=== PATIENT | female | born 1985 | race Native Hawaiian/Other Pacific Islander ===

== ENCOUNTER → 2021-05-13 | Emergency (ER) | LOC: COL.ER 08:45 | DX: R69 Illness, unspecified (principal) ==

== ENCOUNTER 2021-07-28 17:15 | Inpatient (IN) | payer MEDICARE ==
[~2021-07-28] VITALS: Ht 157.5 cm; Wt 104.2 kg
[2021-07-28 17:42] LABS: BASO # 0.1 K/mm3 (0.0-0.2); BASO % 1.2 % (0.0-2.0); EOS # 0.2 K/mm3 (0.0-0.7); EOS % 2.3 % (0.0-4.0); GRAN # 5.5 K/mm3 (1.4-6.5); GRAN % 74.5 % (42.2-75.2); LYMPH # 0.9 K/mm3 (1.2-3.4); LYMPH % 11.6 % (20.0-51.0); MEAN CELL VOLUME 83 fl (80.0-100.0); MEAN CORPUSCULAR HGB CONC 32 g/dl (33.0-37.0); MEAN PLATELET VOLUME 9.6 fl (7.4-10.4); MONO # 0.7 K/mm3 (0.1-0.6); PLATELET COUNT 328 K/mm3 (130-400); RED BLOOD COUNT 3.05 M/mm3 (4.10-5.30); REDCELL DISTRIBUTION WIDTH-CV 12.9 % (11.5-14.5)
[2021-07-28 17:47] LABS: HEMATOCRIT 25.2 % (37.0-47.0); HEMOGLOBIN 8.1 g/dl (12.5-16.0); MEAN CORPUSCULAR HEMOGLOBIN 27 pg (27-31)
[2021-07-28 18:04] LABS: ALBUMIN 2.6 gm/dL (3.5-5.0); BILIRUBIN,TOTAL 0.6 mg/dL (0.2-1.2); CALCIUM 7.6 mg/dL (8.4-10.2); CREATININE, serum 14.38 mg/dL (0.57-1.11); POTASSIUM 3.8 mmol/L (3.5-4.5); TOTAL PROTEIN 6.8 gm/dL (6.2-8.1)
[2021-07-28 18:12] LABS: TROPONIN-I 0.431 ng/mL (0.00-0.033)
[2021-07-28 22:32] LABS: COLLECTION METHOD CLEAN CATCH
[2021-07-28 22:39] LABS: MUCOUS Present (NOT PRESENT); PH 7 (5-8); SQUAMOUS EPITHELIAL 0-2 /hpf (0-10); URINE APPEARANCE Hazy (CLEAR/HAZY); URINE BACTERIA Rare /hpf (NONE SEEN); URINE BILIRUBIN Negative (NEGATIVE); URINE BLOOD 1+ (NEGATIVE); URINE COLOR Yellow (YELLOW); URINE GLUCOSE 1+ (NEGATIVE); URINE KETONE Negative (NEGATIVE); URINE LEUKOCYTE ESTERASE 2+ (NEGATIVE); URINE NITRATE Negative (NEGATIVE); URINE PROTEIN(semi-quant) 3+ (NEGATIVE); URINE RBC 0-2 /hpf (0-2); URINE UROBILINOGEN Negative (NEGATIVE)
[2021-07-28 22:45] LABS: TRICYCLIC ANTIDEPRESS URINE NEGATIVE
[2021-07-28 22:45] LABS: ACETAMINOPHEN < 1.0 ug/mL (10-30); ALCOHOL(ethanol),MEDICAL < 10 mg/dL (0-10); SALICYLATE < 5.0 mg/dL (15.0-30.0)
[2021-07-28] MEDS ORDERED: GLUCOTROL10 MG PO (23:09)
[2021-07-28] MEDS ORDERED: LOPRESSOR 550 MG/TAB PO (23:09)
[2021-07-28] MEDS ORDERED: ADALAT CC60 MG PO (23:10)
[2021-07-28] MEDS ORDERED: NEPHROCAP PO (23:10)
[2021-07-28] MEDS ORDERED: ROCALTROL0.5 MCG PO (23:11)
[2021-07-28] MEDS ORDERED: RENVELA800 MG PO (23:16)
[2021-07-28] MEDS ORDERED: AURYXIA1 GM PO (23:17)
[2021-07-28] MEDS ORDERED: TYLENOL 325MG325 MG PO (23:18)
[2021-07-28 23:43] LABS: ARTERIAL BLD GAS O2 SATURATION 94.6 % (92-100); ARTERIAL BLD GAS TCO2 CT 17.8; ARTERIAL BLOOD GAS BASE EXCESS -7.5 (-2-2); ARTERIAL BLOOD GAS HCO3 16.8 meq/L (22-26); ARTERIAL BLOOD GAS pH 7.37 (7.35-7.45)
[2021-07-29] VITALS (451 sets, daily range): BP systolic 122–188; BP diastolic 40–105; PULSE 66–86; TEMP 97.3–98.2; O2SAT 39–100
--- NOTE | 2021-07-29 00:36 | NUR ---
36 yo female admitted for further care and management of altered mental status with concerns for severe sepsis. ht 66 inches wt 80 kg SCr 14.38 with ESRD on PD Plan: Patient will not follow population based kinetics secondary to ESRD. Will give an initial loading dose of vancomycin 1500 mg x1 (18.75 mg/kg). Will follow patient's dialysis schedule, micro data, and vancomycin levels as indicated to determine timing for additional pulse doses of vancomycin to target a goal trough of 15-20 mcg/ml. Thank you for this dosing consult.
[2021-07-29 01:27] LABS: INR 1.1 (0.8-3.0)
[2021-07-29 01:29] LABS: PARTIAL THROMBOPLASTIN TIME 32.5 SECONDS (26.0-37.0)
[2021-07-29 03:07] LABS: C-REACTIVE PROTEIN 5.63 mg/dL (0.00-0.50); MAGNESIUM 2.4 mg/dL (1.6-2.6); PHOSPHOROUS 12.8 mg/dL (2.3-4.7)
[2021-07-29 06:25] LABS: BASO # 0.1 K/mm3 (0.0-0.2); BASO % 0.6 % (0.0-2.0); EOS # 0.5 K/mm3 (0.0-0.7); EOS % 4.1 % (0.0-4.0); GRAN # 8.7 K/mm3 (1.4-6.5); GRAN % 76.9 % (42.2-75.2); LYMPH # 1.1 K/mm3 (1.2-3.4); MEAN CELL VOLUME 83 fl (80.0-100.0); MEAN CORPUSCULAR HGB CONC 32 g/dl (33.0-37.0); MEAN PLATELET VOLUME 9.7 fl (7.4-10.4); MONO # 0.9 K/mm3 (0.1-0.6); MONO % 7.9 % (1.7-9.3); PLATELET COUNT 371 K/mm3 (130-400); RED BLOOD COUNT 3.18 M/mm3 (4.10-5.30); REDCELL DISTRIBUTION WIDTH-CV 12.8 % (11.5-14.5)
[2021-07-29 06:27] LABS: HEMATOCRIT 26.3 % (37.0-47.0); HEMOGLOBIN 8.5 g/dl (12.5-16.0); MEAN CORPUSCULAR HEMOGLOBIN 27 pg (27-31)
[2021-07-29 06:34] LABS: CALCIUM 7.7 mg/dL (8.4-10.2); CREATININE, serum 14.64 mg/dL (0.57-1.11); POTASSIUM 4.3 mmol/L (3.5-4.5)
--- NOTE | 2021-07-29 08:58 | NUR ---
Blood glucose 38. Patient alert and oriented although slightly drowsy and states she can tell her glucose "feels low". Grape juice and crackers provided. Breakfast was also delivered within [address] minutes [address] juice[address] Armendariz notified. Will continue to monitor.
--- NOTE | 2021-07-29 11:17 | NUR ---
Assisted up to bedside commode; had a continent BM at this time. Patient alert and less drowys after receiving 1/2 amp of D50.
--- NOTE | 2021-07-29 14:30 | NUR ---
Patient stating that she "can't breath" and has repeatedly removed her oxygen on 02 montitor. Patient is alert and oriented. Explained to patient that 02 and the bumex drip are what will help with the shortness of breath. Removed her sp02 monitor because she "didn't feel comfortable" with it on. Notified hospitalist about patient being uncooperative with cares. Will attempt again to replace 02 and 02 monitor.
--- NOTE | 2021-07-29 15:55 | NUR ---
When nurse was allowed to place 02 monitors back on patient was noted to be 79% on RA. 02 was placed back on at 6L and 92-93%. Monteiro catheter has not been placed as nurse has attempted X 4 to get patien to lay back in bed, however patient immediately states that she "can't breath" and needs to sit back up on edge of the bed. While on the edge of the bed patient bobs around and appears as if she is going to fall off the edge. However, patient is alert and oriented at this time. Will assisted up to recliner to see if she is more comfortable while being safely seated in the chair. to Hospitalist notified in person and obseved patient sitting on the side of the bed.
[2021-07-30] VITALS (459 sets, daily range): BP systolic 120–131; BP diastolic 47–83; PULSE 59–67; TEMP 97.2–97.8; O2SAT 82–100
[2021-07-30 05:44] LABS: MEAN CELL VOLUME 81 fl (80.0-100.0); MEAN CORPUSCULAR HGB CONC 33 g/dl (33.0-37.0); MEAN PLATELET VOLUME 9.9 fl (7.4-10.4); PLATELET COUNT 422 K/mm3 (130-400); RED BLOOD COUNT 3.25 M/mm3 (4.10-5.30); REDCELL DISTRIBUTION WIDTH-CV 12.9 % (11.5-14.5)
[2021-07-30 05:57] LABS: HEMATOCRIT 26.3 % (37.0-47.0); HEMOGLOBIN 8.6 g/dl (12.5-16.0); MEAN CORPUSCULAR HEMOGLOBIN 26 pg (27-31)
[2021-07-30 05:58] LABS: ALBUMIN 2.5 gm/dL (3.5-5.0); CALCIUM 7.6 mg/dL (8.4-10.2); CREATININE, serum 14.58 mg/dL (0.57-1.11); MAGNESIUM 2.5 mg/dL (1.6-2.6); POTASSIUM 4.6 mmol/L (3.5-4.5)
--- NOTE | 2021-07-30 06:52 | NUR ---
Patient was restless most of the night but did eventually sleep in the chair for a few hours. Her blood glucose levels continued to rise throughout the night, starting at 2020 her glucose level was 66 and by 0630 her glucose level was 117; patient did not ever need hypoglycemic protocol measures implemented. Patient is currently resting in the chair and will go down to have a dialysis catheter placed at approx 0800.
--- NOTE | 2021-07-30 08:10 | NUR ---
Assisted back to OR with OR nurse at this time for dialysis catheter placement. Patient alert and oriented per usual and in no distress upon transfer.
--- NOTE | 2021-07-30 08:27 | NUR ---
Back from dialysis catheter placement. Patient drowsy but alert and responsive to staff. VS stable.
--- NOTE | 2021-07-30 09:56 | NUR ---
SW tried to complete intake but pt was in OR, will try back later.
--- NOTE | 2021-07-30 10:35 | NUR ---
While observing telemetry reading there appears to be some ST depression. Dr. Unger notified and requested an EKG.
--- NOTE | 2021-07-30 11:00 | NUR ---
No significant findings on EKG per Dr. Unger.
--- NOTE | 2021-07-30 13:15 | NUR ---
Assisted up to the side of the bed to eat. Alert and oriented and speaking to Aunt on the phone.
--- NOTE | 2021-07-30 15:46 | NUR ---
Blood glucose 180's after eating lunch. D12.5 placed on standby. Re-checked 1 hr later and glucose 190's. Hospitalist notified and D12.5 placed on standby at this time. Will continue to monitor.
--- NOTE | 2021-07-30 18:16 | NUR ---
Blood glucose 214 prior to dinner; hospitalist notified. No changes made to plan of care at this time and will plan to check glucose every 4 hours.
--- NOTE | 2021-07-30 20:28 | NUR ---
PM ASSESSMENT COMPLETE. PT SITTING UP IN CHAIR, DENIES PAIN. REPORTS NO QUESTIONS OR CONCERNS. AWARE OF DIALYSIS PLANNED FOR TOMORROW. NEW ACCESS TO RIJ WITH DRESSING CDI. PIV TO RT HAND REMOVED HARD TO FLUSH AND PT C/O PAIN. TIP INTACT, GAUZE AND TAPE APPLIED. VSS, PT ON O2 4L. WILL CONTINUE TO MONITOR.
[2021-07-31] VITALS (434 sets, daily range): BP systolic 104–137; BP diastolic 57–83; PULSE 57–74; TEMP 95.6–98.3; O2SAT 78–98
[2021-07-31 07:34] LABS: MEAN CELL VOLUME 81 fl (80.0-100.0); MEAN CORPUSCULAR HGB CONC 33 g/dl (33.0-37.0); PLATELET COUNT 419 K/mm3 (130-400); REDCELL DISTRIBUTION WIDTH-CV 12.9 % (11.5-14.5)
[2021-07-31 07:50] LABS: HEMATOCRIT 25.2 % (37.0-47.0); HEMOGLOBIN 8.2 g/dl (12.5-16.0); MEAN CORPUSCULAR HEMOGLOBIN 26 pg (27-31)
[2021-07-31 07:51] LABS: ALBUMIN 2.5 gm/dL (3.5-5.0); C-REACTIVE PROTEIN 3.23 mg/dL (0.00-0.50); CALCIUM 7.5 mg/dL (8.4-10.2); CREATININE, serum 14.97 mg/dL (0.57-1.11); MAGNESIUM 2.7 mg/dL (1.6-2.6); PHOSPHOROUS 13.4 mg/dL (2.3-4.7); POTASSIUM 4.6 mmol/L (3.5-4.5)
--- NOTE | 2021-07-31 09:50 | NUR ---
REPORT RECEIVED FROM JOSH BAY. PT SLEPT IN CHAIR OVERNIGHT. FC TO DEPENDENT DRAINAGE. PERIPHERAL IV TO RIGHT AC; SALINE LOCKED AT THIS TIME. DIALYSIS CATHETER TO RIGHT IJ; PLAN FOR HEMODIALYSIS TODAY. CURRENTLY ON 5L NC. VITAL SIGNS STABLE.
--- NOTE | 2021-07-31 10:18 | NUR ---
Fuel Agent met with patient to discuss discharge planning. Patient lives in [place] with her Cousin, Selam (ph#[phone]) and does not have a current primary care physician. Patient states she has had trouble securing primary care since she only has Medicare. Patient states she would like to apply for disability. SW consulted financial counselor, [employer]. Patient obtains medications from [facility] on [address]. Patient states she does dialysis at home and uses no other DME besides this. Patient reports independence with ADLS and plans to return home at time of discharge. Patient does not have DPOA-HC. Patient is not and has no children. Patient reports her mother, Alyssa lives in [facility] and she has a brother, Ashu that lives in [place]. Patient lists her aunt, Emerita (ph#[phone]) as another point of contact. Discharge Plan: Home
--- NOTE | 2021-07-31 12:14 | NUR ---
PATIENT TOLERATED HD TX WITH 2.6L OF FLUID REMOVED. NEXT HD TX PLANNED FOR Saturday08/02/21 @ 0800.
--- NOTE | 2021-07-31 16:09 | NUR ---
TRANSFER ORDERS PLACED BY DR. TAVAREZ FOR PT TO MOVE TO MEDICAL FLOOR. REPORT GIVEN TO JOSH PATTERSON. PT WILL BE TAKEN TO RM 302. PT AWARE OF STATUS CHANGE AND STATES SHE WILL LET HER FAMILY KNOW.
[2021-07-31 16:58] LABS: HEPATITIS B SURFACE ANTIBODY 173.5 (()); HEPATITIS B SURFACE ANTIGEN Negative (Negative); HEPATITIS C VIRUS ANTIBODY Negative (Negative)
[2021-08-01 03:03] VITALS: BP 133/47; PULSE 66; TEMP 98.1
[2021-08-01 07:58] VITALS: BP 124/54; PULSE 65; TEMP 97.5
[2021-08-01 12:00] VITALS: BP 112/45; PULSE 62; TEMP 98.5
[2021-08-01 13:17] LABS: BASO # 0.1 K/mm3 (0.0-0.2); BASO % 0.5 % (0.0-2.0); EOS % 0.2 % (0.0-4.0); GRAN # 11.5 K/mm3 (1.4-6.5); GRAN % 89.7 % (42.2-75.2); LYMPH # 0.6 K/mm3 (1.2-3.4); MEAN CELL VOLUME 81 fl (80.0-100.0); MEAN CORPUSCULAR HGB CONC 33 g/dl (33.0-37.0); MEAN PLATELET VOLUME 10.2 fl (7.4-10.4); MONO # 0.5 K/mm3 (0.1-0.6); MONO % 3.9 % (1.7-9.3); PLATELET COUNT 384 K/mm3 (130-400); RED BLOOD COUNT 2.85 M/mm3 (4.10-5.30); REDCELL DISTRIBUTION WIDTH-CV 12.9 % (11.5-14.5)
[2021-08-01 13:19] LABS: HEMATOCRIT 23.2 % (37.0-47.0); HEMOGLOBIN 7.6 g/dl (12.5-16.0); MEAN CORPUSCULAR HEMOGLOBIN 27 pg (27-31)
[2021-08-01 13:29] LABS: ALBUMIN 2.4 gm/dL (3.5-5.0); CALCIUM 7.7 mg/dL (8.4-10.2); CREATININE, serum 9.63 mg/dL (0.57-1.11); MAGNESIUM 2.5 mg/dL (1.6-2.6); PHOSPHOROUS 8.5 mg/dL (2.3-4.7); POTASSIUM 4.5 mmol/L (3.5-4.5)
[2021-08-01 14:23] VITALS: BP 112/45; PULSE 62; TEMP 98.5
[2021-08-01 17:19] VITALS: BP 127/46; PULSE 64; TEMP 98.6
--- NOTE | 2021-08-01 18:29 | NUR ---
PT SITTING UP IN CHAIR. STONE DRAINING AT BEDISDE. PT STATES THAT SHE IS NOT AHVING ANY PAIN. NO NEEDS VOICED AT THIS TIME. CALL LIGHT IS WITHIN REACH.
--- NOTE | 2021-08-01 18:33 | NUR ---
PT SITTING UP IN CHAIR PLAYING ON PHONE. PT STATES THAT SHE WOULD LIKE TO HAVE A WARM BLANET. BLANKET GIVEN TO PT. NO OTHER NEEDS WERE VOICED. PT STATES THAT SHE IS NOT HAVING ANY PAIN. STONE WERE DRAINING AT THE BEDSIDE. CALL LIGHT IS WITHIN REACH.
[2021-08-01 20:21] VITALS: BP 127/58; PULSE 71; TEMP 98
--- NOTE | 2021-08-01 21:00 | NUR ---
Patient is sitting in the chair with the head covered with a blanket and using her cellphone. Alert and oriented x4, VSS, denies pain, nausea or vomiting. 4L O2 NC. Catheter bunch in place, yellow clear outut. Complains of itchiness from scabs in her back. Assessment completed, medications provided. No further needs at this time. Call light within reach.
[2021-08-02 00:48] VITALS: BP 120/64; PULSE 58; TEMP 98.1
--- NOTE | 2021-08-02 02:11 | NUR ---
Pt complained about catheter bunch stating it is uncomfortable and itching. Requested to remove it. Contacted Verna to review if possible. She comfirmed verbally to remove it. It was discontinued. Pt instructed to call after voiding in measuring cup in restroom.
[2021-08-02 04:31] VITALS: BP 117/49; PULSE 59; TEMP 98.2
[2021-08-02 06:38] LABS: BASO # 0.1 K/mm3 (0.0-0.2); BASO % 0.7 % (0.0-2.0); EOS # 0.3 K/mm3 (0.0-0.7); EOS % 1.8 % (0.0-4.0); GRAN # 10.1 K/mm3 (1.4-6.5); GRAN % 73.5 % (42.2-75.2); LYMPH # 1.8 K/mm3 (1.2-3.4); LYMPH % 13.1 % (20.0-51.0); MEAN CELL VOLUME 81 fl (80.0-100.0); MEAN CORPUSCULAR HGB CONC 33 g/dl (33.0-37.0); MEAN PLATELET VOLUME 10.2 fl (7.4-10.4); MONO # 1.4 K/mm3 (0.1-0.6); MONO % 10.1 % (1.7-9.3); PLATELET COUNT 339 K/mm3 (130-400); RED BLOOD COUNT 2.89 M/mm3 (4.10-5.30); REDCELL DISTRIBUTION WIDTH-CV 12.7 % (11.5-14.5)
[2021-08-02 06:44] LABS: HEMOGLOBIN 7.7 g/dl (12.5-16.0); MEAN CORPUSCULAR HEMOGLOBIN 27 pg (27-31)
[2021-08-02 06:45] LABS: HEMATOCRIT 23.3 % (37.0-47.0)
--- NOTE | 2021-08-02 06:59 | NUR ---
Pt had un unrestful night. She just went to bed around 3 to 4 am. She likes to listen to music and play with her cellphone. Right now sleeping. Continues at 4 L O2 NC. Report given to day RN.
--- NOTE | 2021-08-02 07:00 | NUR ---
Report received from JOSH Ahuja. PT in bed resting with eyes closed, will continue to monitor.
[2021-08-02 07:07] LABS: ALBUMIN 2.4 gm/dL (3.5-5.0); CALCIUM 7.7 mg/dL (8.4-10.2); CREATININE, serum 10.25 mg/dL (0.57-1.11); MAGNESIUM 2.7 mg/dL (1.6-2.6); PHOSPHOROUS 8.6 mg/dL (2.3-4.7)
[2021-08-02 08:01] VITALS: BP 132/41; PULSE 57; TEMP 97.9
--- NOTE | 2021-08-02 08:30 | NUR ---
Assessment charted. Pt sitting at side of bed, ready for breakfast and dialysis this am. Per [facility] Dialysis nurse holding BP meds so pt can have more success with dialysis this am. Denies pain, denies cough. Immediately after giving steroid decadron IV pt did have severe itching to back at sites where she chronically itches, assisted with itching and it subsided in a few minutes. INT to RFA. L ABD peritineal dialysis cath is CDI with gauze and tegaderm. [facility] HD cath site. Alert and oriented, will continu e to monitor.
--- NOTE | 2021-08-02 11:27 | NUR ---
PATIENT TOLERATED HD TX WITH 2.5L OF FLUID OFF. PATIENT WEANED OFF O2 & TOLERATING RA WITH O2 SAT 93-94%.
[2021-08-02 11:44] VITALS: BP 166/38; PULSE 70; TEMP 98.3
[2021-08-02 16:32] VITALS: BP 148/31; PULSE 77; TEMP 98.2
--- NOTE | 2021-08-02 19:02 | NUR ---
Pt rested most of afternoon. Resting in chair at side of bed, eating supper well. Denies needs, discussed plan to figure out home oxygen tomorrow and then hopefully discharge. Report given to nightshift nurse who will resuem care.
[2021-08-02 20:12] VITALS: BP 144/38; PULSE 80; TEMP 98.7
--- NOTE | 2021-08-02 21:57 | NUR ---
ALERT ANDOX4. DENIES SOA,CHEST PAIN OR DIZZY. NO GENERALIZED PAIN. SNACKS GIVEN FOR NIGHT. PM MEDS.;POC DISCUSSED. CALL LIGHT WI REACH. DIAYLSIS M-W-F RT AC INT. HEMODIAYLSIS PORT NOT TOUCHED. 2L N/C. WILL NEED HOME O2 FOR DC TOMORROW. WILL PASS ON.
[2021-08-03 00:07] VITALS: BP 146/37; PULSE 69; TEMP 98.5
[2021-08-03 05:28] VITALS: BP 133/62; PULSE 66; TEMP 98
--- NOTE | 2021-08-03 05:38 | NUR ---
WAS UP MOST OF THE NIGHT PLAYING ON HER PHONE. NEEDS MET. CALL LIGHT WI REACH.
[2021-08-03 06:23] LABS: MEAN CELL VOLUME 83 fl (80.0-100.0); MEAN CORPUSCULAR HGB CONC 32 g/dl (33.0-37.0); MEAN PLATELET VOLUME 10.3 fl (7.4-10.4); PLATELET COUNT 379 K/mm3 (130-400); REDCELL DISTRIBUTION WIDTH-CV 12.9 % (11.5-14.5)
[2021-08-03 06:40] LABS: HEMATOCRIT 24.2 % (37.0-47.0); HEMOGLOBIN 7.7 g/dl (12.5-16.0); MEAN CORPUSCULAR HEMOGLOBIN 27 pg (27-31)
[2021-08-03 06:41] LABS: ALBUMIN 2.4 gm/dL (3.5-5.0); CALCIUM 8.2 mg/dL (8.4-10.2); CREATININE, serum 7.54 mg/dL (0.57-1.11); MAGNESIUM 2.7 mg/dL (1.6-2.6); PHOSPHOROUS 5.8 mg/dL (2.3-4.7); POTASSIUM 4.1 mmol/L (3.5-4.5)
[2021-08-03 07:52] VITALS: BP 152/63; PULSE 83; TEMP 98.3
[2021-08-03 08:10] LABS: BAND 5 % (0-10); BASOPHIL 1 % (0-2); EOSINOPHIL 3 % (0-4); LYMPHOCYTE 21 % (20.0-51.0); NEUTROPHILS 60 % (42.0-75.2)
[2021-08-03 08:11] LABS: PLATELET ESTIMATE NORMAL (NORMAL)
[2021-08-03] MEDS ORDERED: DECADRON6 MG PO (09:18)
[2021-08-03] MEDS ORDERED: PHOSLO667 MG PO (09:19)
[2021-08-03] MEDS ORDERED: GLUCOTROL 5M5 MG/TAB PO (09:32)
--- NOTE | 2021-08-03 09:47 | NUR ---
PT ASSESSED. NO COMPLAINTS OF PAIN OR DYSPNEA. NO SIGNS OR SYMPTOMS OF DISTRESS. CALL LIGHT WITHIN REACH
[2021-08-03 11:36] VITALS: BP 137/62; PULSE 63; TEMP 98.5
--- NOTE | 2021-08-03 14:54 | NUR ---
Workers Compensation Defense Attorney followed up with patient on discharge plan. Patient is ready for discharge today and needs home oxygen. Patient is agreeable to have oxygen set up with [facility]. SW discussed Home Health services with patient and she does not feels she needs HH at this time. SW contacted [facility] and faxed referral/orders. Oxygen will be delivered to patient's room. Patient inquired again about applying for disability. SW consulted [employer].
--- NOTE | 2021-08-03 16:48 | NUR ---
PT DISCHARGE TEACHING COMPLETE. NO SIGNS OR SYMPTOMS OF DISTRESS. INFORMATION CONCERNING FOLLOWUP APPOINTMENTS AND MEDICATIONS GIVEN. HOME O2 AARRIVED FOR PT AND EXPLAINATION GIVEN FOR THAT. ALL QUESTIONS ANSWERED. PT ESCORTED OUT BY PCT STAFF.
== END 2021-08-03 16:50 | disposition home or self-care (01) | DRG 682 ==
LOC: COL.ER 17:15 → ICU 23:19 → MEDICAL 07-31 16:57
PROVIDERS: Family Medicine; Internal Medicine; Internal Medicine Nephrology; Nurse Practitioner Family; Physician Assistant; Surgery; ADMIT Internal Medicine
PROC: 05HM33Z Insertion of Infusion Device into Right Internal Jugular Vein, Percutaneous Approach (ICD-10-PCS; principal; 2021-07-30 08:00)
PROC: 5A1D70Z Performance of Urinary Filtration, Intermittent, Less than 6 Hours Per Day (ICD-10-PCS; 2021-07-31)
DX: I12.0 Hypertensive chronic kidney disease with stage 5 chronic kidney disease or end stage renal disease (principal); N18.6 End stage renal disease; U07.1 COVID-19; J12.82 Pneumonia due to coronavirus disease 2019; G93.40 Encephalopathy, unspecified; N39.0 Urinary tract infection, site not specified; E87.1 Hypo-osmolality and hyponatremia; N17.9 Acute kidney failure, unspecified; E11.649 Type 2 diabetes mellitus with hypoglycemia without coma; E11.22 Type 2 diabetes mellitus with diabetic chronic kidney disease; E66.9 Obesity, unspecified; E87.8 Other disorders of electrolyte and fluid balance, not elsewhere classified; D64.9 Anemia, unspecified; E83.39 Other disorders of phosphorus metabolism; T38.3X5A Adverse effect of insulin and oral hypoglycemic [antidiabetic] drugs, initial encounter; T68.XXXA Hypothermia, initial encounter; X31.XXXA Exposure to excessive natural cold, initial encounter; Z68.38 Body mass index [BMI] 38.0-38.9, adult
CPT/HCPCS: 99223-AI; 99233-AI; 99239; J0690; J0696; J1100; J1644; J1815; J2543; J2704; J3010; J3370; J7030; J7042; J7050; Q5105

== ENCOUNTER 2021-09-13 14:15 | Outpatient (RCR) | payer MEDICARE ==
[~2021-09-13 14:15] MED LIST: ADALAT CC60 MG PO; AURYXIA1 GM PO; DECADRON6 MG PO; GLUCOTROL 5M5 MG/TAB PO; GLUCOTROL10 MG PO; LOPRESSOR 550 MG/TAB PO; NEPHROCAP PO; PHOSLO667 MG PO; RENVELA800 MG PO; ROCALTROL0.5 MCG PO; TYLENOL 325MG325 MG PO
== END 2021-09-14 | disposition still patient (30) ==
LOC: WSPT
DX: N18.5 Chronic kidney disease, stage 5 (principal); Z99.2 Dependence on renal dialysis

== ENCOUNTER 2021-09-19 13:55 | Outpatient (RCR) | payer MEDICARE ==
[2021-10-02] MEDS ORDERED: LIPITOR 40MG TA40 MG PO (16:18)
[2021-10-02] MEDS ORDERED: LASIX 80MG TABL80 MG (16:19)
[2021-10-02] MEDS ORDERED: NEURONTIN100 MG/CAP PO (16:19)
[2021-10-06] MEDS ORDERED: AMOXICILLIN 8751 TAB PO (09:31)
[2021-10-06] MEDS ORDERED: DOXYCYCLINE 10100 MG PO (09:31)
[2021-10-06] MEDS ORDERED: NORCO 325 MG-51 TAB PO (09:37)
== END 2021-10-14 | disposition home or self-care (01) ==
LOC: WSPT
DX: E11.22 Type 2 diabetes mellitus with diabetic chronic kidney disease (principal); N18.5 Chronic kidney disease, stage 5; E11.40 Type 2 diabetes mellitus with diabetic neuropathy, unspecified

== ENCOUNTER 2021-10-02 11:44 | Inpatient (IN) | payer MEDICARE ==
[~2021-10-02] VITALS: Ht 157.5 cm; Wt 94.9 kg
[2021-10-02 12:55] LABS: BASO # 0.2 K/mm3 (0.0-0.2); BASO % 1.3 % (0.0-2.0); EOS # 0.6 K/mm3 (0.0-0.7); EOS % 5.2 % (0.0-4.0); GRAN # 9.3 K/mm3 (1.4-6.5); GRAN % 77.7 % (42.2-75.2); HEMOGLOBIN 8.2 g/dl (12.5-16.0); LYMPH # 0.9 K/mm3 (1.2-3.4); LYMPH % 7.3 % (20.0-51.0); MEAN CELL VOLUME 77 fl (80.0-100.0); MEAN CORPUSCULAR HEMOGLOBIN 25 pg (27-31); MEAN CORPUSCULAR HGB CONC 33 g/dl (33.0-37.0); MEAN PLATELET VOLUME 8.6 fl (7.4-10.4); MONO # 0.9 K/mm3 (0.1-0.6); MONO % 7.9 % (1.7-9.3); PLATELET COUNT 574 K/mm3 (130-400); RED BLOOD COUNT 3.26 M/mm3 (4.10-5.30); REDCELL DISTRIBUTION WIDTH-CV 13.9 % (11.5-14.5)
[2021-10-02 13:16] LABS: ALANINE AMINOTRANSFERASE 16 U/L (0-55); ALBUMIN 2.1 gm/dL (3.5-5.0); ALKALINE PHOSPHATASE 117 U/L (40-150); ANION GAP 24 mmol/L (7-16); AST,SGOT 15 U/L (5-34); BILIRUBIN,TOTAL < 0.5 mg/dL (0.2-1.2); BLOOD UREA NITROGEN 91 mg/dL (7-19); CALCIUM 7.8 mg/dL (8.4-10.2); CHLORIDE 91 mmol/L (98-107); CREATININE, serum 11.89 mg/dL (0.57-1.11); GLUCOSE 108 mg/dL (70-99); POTASSIUM 4.1 mmol/L (3.5-4.5); SODIUM 129 mmol/L (136-145); TOTAL PROTEIN 7.1 gm/dL (6.2-8.1)
[2021-10-02 13:18] LABS: CARBON DIOXIDE 14 mmol/L (22-29)
[2021-10-02 13:30] LABS: COLLECTION METHOD CLEAN CATCH
[2021-10-02 13:36] LABS: PH 7 (5-8); SQUAMOUS EPITHELIAL 0-2 /hpf (0-10); URINE APPEARANCE Clear (CLEAR/HAZY); URINE BACTERIA Rare /hpf (NONE SEEN); URINE BILIRUBIN Negative (NEGATIVE); URINE BLOOD 1+ (NEGATIVE); URINE COLOR Straw (YELLOW); URINE GLUCOSE 3+ (NEGATIVE); URINE KETONE Negative (NEGATIVE); URINE LEUKOCYTE ESTERASE Negative (NEGATIVE); URINE NITRATE Negative (NEGATIVE); URINE PROTEIN(semi-quant) 2+ (NEGATIVE); URINE RBC 0-2 /hpf (0-2); URINE UROBILINOGEN Negative (NEGATIVE)
[2021-10-02 16:07] LABS: INR 1.3 (0.8-3.0); PROTHROMBIN TIME 14.8 SECONDS (9.7-12.8)
[2021-10-02] MEDS ORDERED: LIPITOR 40MG TA40 MG PO (16:18)
[2021-10-02] MEDS ORDERED: LASIX 80MG TABL80 MG (16:19)
[2021-10-02] MEDS ORDERED: NEURONTIN100 MG/CAP PO (16:19)
[2021-10-02 16:38] VITALS: BP 147/62; PULSE 85; TEMP 98.1
--- NOTE | 2021-10-02 16:55 | NUR ---
Patient admitted to the floor w/ IVs in the bilateral ACs, and a bunch catheter in place. Bunch is draining, clear, pale yellow urine. Patient c/o pain in the right leg. Ulcer is closed and free of drainage, and is approx. 6x14cm. Patient winces in pain when leg it touched. BLE are warm to touch. Dr. Cervantes notified of patient's arrival to the floor.
[2021-10-02 20:13] VITALS: BP 172/88; PULSE 91; TEMP 97.7
--- NOTE | 2021-10-02 22:06 | NUR ---
Patient assessed around 2109. Alert and oriented x 4, and able to make needs known. Denies having pain and discomfort at this time. Peripheral INT to right AC. Denies SOB and dyspnea. LS CTA. HRR. BSAx4. Peritoneal dialysis catheter to abdomen. Indwelling bunch catheter patent, draining clear yellow urine. 1+ edema BLE. BLE with scaling/flaking. Ulcer to RLE, no drainage, open to air. BP elevated. Notified KARINA Gillespie, and home medications were resumed. Given per orders. Voices no questions, needs, or concerns at this time. In bed with call light within reach.
[2021-10-02 23:43] VITALS: BP 123/49; PULSE 70; TEMP 99
[2021-10-03] VITALS (12 sets, daily range): BP systolic 120–167; BP diastolic 58–81; PULSE 69–97; TEMP 98.5–99.4
--- NOTE | 2021-10-03 05:46 | NUR ---
Patient has denied having pain and discomfort this shift. Voices no questions, needs, or concerns at this time. In bed with call light within reach.
[2021-10-03 07:57] LABS: BASO # 0.1 K/mm3 (0.0-0.2); BASO % 0.9 % (0.0-2.0); EOS # 0.8 K/mm3 (0.0-0.7); GRAN # 8.5 K/mm3 (1.4-6.5); LYMPH # 1.3 K/mm3 (1.2-3.4); LYMPH % 10.7 % (20.0-51.0); MEAN CELL VOLUME 77 fl (80.0-100.0); MEAN CORPUSCULAR HGB CONC 32 g/dl (33.0-37.0); MEAN PLATELET VOLUME 8.6 fl (7.4-10.4); MONO # 1.2 K/mm3 (0.1-0.6); MONO % 10.1 % (1.7-9.3); PLATELET COUNT 498 K/mm3 (130-400); RED BLOOD COUNT 2.81 M/mm3 (4.10-5.30); REDCELL DISTRIBUTION WIDTH-CV 14.1 % (11.5-14.5)
[2021-10-03 07:58] LABS: HEMATOCRIT 21.7 % (37.0-47.0); MEAN CORPUSCULAR HEMOGLOBIN 25 pg (27-31)
[2021-10-03 08:10] LABS: CALCIUM 7.5 mg/dL (8.4-10.2); CREATININE, serum 12.63 mg/dL (0.57-1.11); POTASSIUM 4.4 mmol/L (3.5-4.5)
--- NOTE | 2021-10-03 09:16 | NUR ---
Patient called and requested pain medication. Stated her pain was horrible in her legs and she just wanted some tylenol. PRN tylenol administered w/ a small sip of water. Assessment completed. Patient assisted w/ adjusting in bed, right leg elevated on pillow. Patient currently NPO for HD cath placement this afternoon.
--- NOTE | 2021-10-03 09:56 | NUR ---
Social Work student met with patient to discuss discharge planning. Patient lives in [place] with her cousin, Jazlyn(ph#[phone]). Patient mentioned that her aunt, Emerita(ph#[phone]), lives next door. Patient sees Dr. Michael for primary care, and receives her medications from [facility] with no cost difficulty. Patient does not utilize any durable medical equiptment, but she does use 2L of oxygen "when needed." Patient states that she is independent with her ADL's. Patient states that she last filled out a DPOA-HC in [place], which listed her ex- as primary agent. This SW asked patient if she was interested in filling out a new one, and she said, "Yes." This ELIZABETH and ELIZABETH Gillespie witnessed the patient sign the DPOA-HC as she verbalized Jazlyn, her cousin, as the primary agent. SW placed a copy on patient's chart and gave the patient a few copies and the original. *Discharge plan: Home with cousin*
--- NOTE | 2021-10-03 16:27 | NUR ---
Patient went down for HD cath placement, went to dialysis right after. Patient tolerated procedure well as reported by anesthesiology. Abimbola from dialysis called about ordering the patient lunch. Renal diet resumed.
--- NOTE | 2021-10-03 16:37 | NUR ---
PATIENT TOLERATED HD TX WITH 2L OF FLUID REMOVED. NEXT PLANNED HD TX ON Saturday10/05/21 @ 0830.
--- NOTE | 2021-10-03 22:11 | NUR ---
Patient assessed around 193. Complained of level 8 pain to RLE at that time, and given PRN [place] for pain. Peripheral INT to right AC bothering her, and taken out as requested. INT to left AC. Denies SOB and dyspnea. LS CTA. HRR. BSAx4. HD catheter to right IJ. Ulcer to left calf. Open to air, no drainage. Voices no questions, needs, or concerns at this time. In bed with call light within reach. Encouraged to call with any questions, needs, or concerns, and to call if having increased pain. Voiced understanding.
[2021-10-04 00:50] VITALS: BP 146/60; PULSE 79; TEMP 100.1
[2021-10-04 04:35] VITALS: BP 140/73; PULSE 76; TEMP 99.5
--- NOTE | 2021-10-04 05:31 | NUR ---
Patient had temp of 100.1 during the night. Given PRN [place] for pain. Temp went down to 99.5. Patient voices no questions, needs, or concerns at this time. In bed with call light within reach.
[2021-10-04 06:46] LABS: BASO # 0.1 K/mm3 (0.0-0.2); BASO % 1.1 % (0.0-2.0); EOS # 0.5 K/mm3 (0.0-0.7); EOS % 4.1 % (0.0-4.0); GRAN # 7.6 K/mm3 (1.4-6.5); GRAN % 69.4 % (42.2-75.2); LYMPH # 1.3 K/mm3 (1.2-3.4); LYMPH % 11.8 % (20.0-51.0); MEAN CELL VOLUME 80 fl (80.0-100.0); MEAN CORPUSCULAR HGB CONC 31 g/dl (33.0-37.0); MEAN PLATELET VOLUME 8.7 fl (7.4-10.4); MONO # 1.4 K/mm3 (0.1-0.6); MONO % 12.7 % (1.7-9.3); PLATELET COUNT 501 K/mm3 (130-400); RED BLOOD COUNT 3.11 M/mm3 (4.10-5.30); REDCELL DISTRIBUTION WIDTH-CV 14.3 % (11.5-14.5)
[2021-10-04 06:49] LABS: HEMATOCRIT 24.8 % (37.0-47.0); HEMOGLOBIN 7.7 g/dl (12.5-16.0); MEAN CORPUSCULAR HEMOGLOBIN 25 pg (27-31)
[2021-10-04 07:04] LABS: ALBUMIN 1.9 gm/dL (3.5-5.0); CALCIUM 8.1 mg/dL (8.4-10.2); CREATININE, serum 7.96 mg/dL (0.57-1.11); MAGNESIUM 2.5 mg/dL (1.6-2.6); PHOSPHOROUS 8.4 mg/dL (2.3-4.7); POTASSIUM 4.5 mmol/L (3.5-4.5)
[2021-10-04 08:01] VITALS: BP 154/67; PULSE 80; TEMP 98.5
[2021-10-04 12:10] VITALS: BP 141/60; BP 159/69; PULSE 71; PULSE 79; TEMP 98.2
[2021-10-04 15:34] VITALS: BP 118/56; PULSE 68; TEMP 98.7
[2021-10-04 20:07] VITALS: BP 123/55; PULSE 70; TEMP 97.5
--- NOTE | 2021-10-04 23:26 | NUR ---
Patient assessed around 1999. Alert and oriented, and able to make needs known. Complained of pain and given PRN [place] for pain. Peripheral INT to left AC. HD catheter to right IJ. Peritoneal diaysis catheter to abdomen. Denies SOB and dyspnea. LS CTA. HRR. BSAx4. Indwelling bunch catheter with clear yellow urine. Voices no questions, needs, or concerns at this time. In bed with call light within reach.
[2021-10-05 01:04] VITALS: BP 137/72; PULSE 62; TEMP 98.6
[2021-10-05 04:19] VITALS: BP 112/70; PULSE 66; TEMP 99.2
--- NOTE | 2021-10-05 05:52 | NUR ---
Patient has received PRN [place] as requested for pain this shift. Continues on IV ABX per orders. Voices no questions, needs, or concerns at this time. In bed with call light within reach.
[2021-10-05 06:18] LABS: BASO # 0.1 K/mm3 (0.0-0.2); BASO % 0.8 % (0.0-2.0); EOS # 0.9 K/mm3 (0.0-0.7); EOS % 7.5 % (0.0-4.0); GRAN # 8.8 K/mm3 (1.4-6.5); GRAN % 69.7 % (42.2-75.2); LYMPH # 1.4 K/mm3 (1.2-3.4); LYMPH % 11.4 % (20.0-51.0); MEAN CELL VOLUME 82 fl (80.0-100.0); MEAN CORPUSCULAR HGB CONC 31 g/dl (33.0-37.0); MONO # 1.2 K/mm3 (0.1-0.6); MONO % 9.6 % (1.7-9.3); PLATELET COUNT 482 K/mm3 (130-400); RED BLOOD COUNT 2.93 M/mm3 (4.10-5.30); REDCELL DISTRIBUTION WIDTH-CV 14.5 % (11.5-14.5)
[2021-10-05 06:30] LABS: HEMOGLOBIN 7.4 g/dl (12.5-16.0); MEAN CORPUSCULAR HEMOGLOBIN 25 pg (27-31)
[2021-10-05 06:42] LABS: ALBUMIN 1.9 gm/dL (3.5-5.0); CALCIUM 8.1 mg/dL (8.4-10.2); CREATININE, serum 8.75 mg/dL (0.57-1.11); MAGNESIUM 2.6 mg/dL (1.6-2.6); PHOSPHOROUS 8.6 mg/dL (2.3-4.7); POTASSIUM 5.2 mmol/L (3.5-4.5)
[2021-10-05 07:09] VITALS: BP 122/74; PULSE 68; TEMP 98.2
--- NOTE | 2021-10-05 11:47 | NUR ---
PATIENT TOLERATED HER HD TX WITH 3L OF FLUID REMOVED. NEXT PLANNED HD TX ON Saturday10/07/21 @ 0830.
[2021-10-05 11:58] VITALS: BP 157/61; PULSE 76; TEMP 98.4
--- NOTE | 2021-10-05 13:37 | NUR ---
Initial visit; Patient thanked Lathing Supervisor for looking in on her and offering prayer and God's blessings. Patient followed by offering prayer for Lathing Supervisor which was greatly appreciated.
[2021-10-05 15:25] VITALS: BP 121/64; PULSE 66; TEMP 98.1
[2021-10-05 20:22] VITALS: BP 120/53; PULSE 74; TEMP 98.8
--- NOTE | 2021-10-05 20:30 | NUR ---
Patient is resgint in bed, alert and oriented x 4, VSS, states pain in her leg. PRN will be provided. Catheter bunch in place, yellow clear output. Assessment completed, states she wants her medacations later. No other needs at this time. Call [facility] within reach.
[2021-10-06 00:01] VITALS: BP 107/51; PULSE 62; TEMP 99.2
[2021-10-06 04:09] VITALS: BP 114/59; PULSE 65; TEMP 99.3
--- NOTE | 2021-10-06 05:20 | NUR ---
Patient has been stable along the night. VS WNL. She asked for norco once due to pain in her right leg. Report will be given to day RN.
[2021-10-06 06:33] LABS: BASO # 0.2 K/mm3 (0.0-0.2); BASO % 1.3 % (0.0-2.0); EOS # 1.1 K/mm3 (0.0-0.7); EOS % 9.1 % (0.0-4.0); GRAN % 67.7 % (42.2-75.2); LYMPH # 1.3 K/mm3 (1.2-3.4); LYMPH % 10.8 % (20.0-51.0); MEAN CELL VOLUME 83 fl (80.0-100.0); MEAN CORPUSCULAR HGB CONC 30 g/dl (33.0-37.0); MEAN PLATELET VOLUME 9.2 fl (7.4-10.4); MONO # 1.2 K/mm3 (0.1-0.6); MONO % 10.5 % (1.7-9.3); PLATELET COUNT 464 K/mm3 (130-400); RED BLOOD COUNT 2.86 M/mm3 (4.10-5.30); REDCELL DISTRIBUTION WIDTH-CV 14.4 % (11.5-14.5)
[2021-10-06 06:37] LABS: HEMATOCRIT 23.7 % (37.0-47.0); HEMOGLOBIN 7.1 g/dl (12.5-16.0); MEAN CORPUSCULAR HEMOGLOBIN 25 pg (27-31)
[2021-10-06 06:58] LABS: CALCIUM 8.5 mg/dL (8.4-10.2); CREATININE, serum 5.76 mg/dL (0.57-1.11); MAGNESIUM 2.4 mg/dL (1.6-2.6); PHOSPHOROUS 5.6 mg/dL (2.3-4.7); POTASSIUM 5.1 mmol/L (3.5-4.5)
[2021-10-06 07:23] VITALS: BP 132/62; PULSE 65; TEMP 98.5
--- NOTE | 2021-10-06 08:53 | NUR ---
THIS RN ENTERED PT ROOM TO PASS MEDS AND COMPLETE ASSESSMENT. PT STATES SHE DIDN'T GET ANY SLEEP LAST NIGHT AND DOES NOT WANT TO TAKE HER MEDS. ASKS THAT I RETURN IN 30 MIN. WILL TRY AGAIN IN 30 MIN.
[2021-10-06] MEDS ORDERED: DOXYCYCLINE 10100 MG PO (09:31)
[2021-10-06] MEDS ORDERED: AMOXICILLIN 8751 TAB PO (09:31)
[2021-10-06] MEDS ORDERED: NORCO 325 MG-51 TAB PO (09:37)
--- NOTE | 2021-10-06 10:01 | NUR ---
PT RESTING IN BED. MORNING MEDICATIONS GIVEN. SHIFT ASSESSMENT COMPLETED. PLANS TO D/C PT HOME. WILL CONTINUE TO MONITOR.
--- NOTE | 2021-10-06 11:18 | NUR ---
PT BEING ESCORTED OFF OF UNIT. WILL D/C FROM SYSTEM.
== END 2021-10-06 11:23 | disposition home or self-care (01) | DRG 602 ==
LOC: COL.ER 11:44 → MEDICAL 14:58
PROVIDERS: Physician Assistant; Registered Nurse; Surgery; ADMIT Internal Medicine
PROC: B5131ZA Fluoroscopy of Right Jugular Veins using Low Osmolar Contrast, Guidance (ICD-10-PCS; 2021-10-03)
PROC: 5A1D70Z Performance of Urinary Filtration, Intermittent, Less than 6 Hours Per Day (ICD-10-PCS; 2021-10-03)
PROC: 05HM33Z Insertion of Infusion Device into Right Internal Jugular Vein, Percutaneous Approach (ICD-10-PCS; principal; 2021-10-03 12:00)
DX: L03.115 Cellulitis of right lower limb (principal); N18.6 End stage renal disease; I12.0 Hypertensive chronic kidney disease with stage 5 chronic kidney disease or end stage renal disease; E87.1 Hypo-osmolality and hyponatremia; E87.2 Acidosis; E11.22 Type 2 diabetes mellitus with diabetic chronic kidney disease; E83.39 Other disorders of phosphorus metabolism; D75.839 Thrombocytosis, unspecified; D50.9 Iron deficiency anemia, unspecified; E87.5 Hyperkalemia; Z99.2 Dependence on renal dialysis
CPT/HCPCS: 99223-AI; 99232-AI; 99233-AI; 99239; J0690; J1644; J1756; J2270; J2405; J2543; J2704; J3010; J3370; J7030; J7050; Q5105

== ENCOUNTER 2022-01-03 20:36 | Emergency (ER) | payer MEDICARE ==
[~2022-01-03] VITALS: Ht 157.5 cm; Wt 95.5 kg
[~2022-01-03 20:36] MED LIST changes: +AMOXICILLIN 8751 TAB PO; +DOXYCYCLINE 10100 MG PO; +LASIX 80MG TABL80 MG; +LIPITOR 40MG TA40 MG PO; +NEURONTIN100 MG/CAP PO; +NORCO 325 MG-51 TAB PO
[2022-01-03 20:37] VITALS: TEMP 97.8
[2022-01-03 23:44] LABS: BASO # 0.1 K/mm3 (0.0-0.2); BASO % 1.6 % (0.0-2.0); EOS # 0.9 K/mm3 (0.0-0.7); EOS % 10.9 % (0.0-4.0); GRAN # 5.5 K/mm3 (1.4-6.5); GRAN % 64.4 % (42.2-75.2); HEMOGLOBIN 7.7 g/dl (12.5-16.0); LYMPH # 1.3 K/mm3 (1.2-3.4); LYMPH % 14.6 % (20.0-51.0); MEAN CELL VOLUME 82 fl (80.0-100.0); MEAN CORPUSCULAR HEMOGLOBIN 25 pg (27-31); MEAN CORPUSCULAR HGB CONC 31 g/dl (33.0-37.0); MEAN PLATELET VOLUME 8.8 fl (7.4-10.4); MONO # 0.7 K/mm3 (0.1-0.6); MONO % 8.3 % (1.7-9.3); PLATELET COUNT 443 K/mm3 (130-400); RED BLOOD COUNT 3.08 M/mm3 (4.10-5.30); REDCELL DISTRIBUTION WIDTH-CV 15.9 % (11.5-14.5)
[2022-01-03 23:45] LABS: HEMATOCRIT 25.1 % (37.0-47.0)
[2022-01-03 23:54] LABS: INR 1.2 (0.8-3.0); PROTHROMBIN TIME 13.9 SECONDS (9.7-12.8)
[2022-01-04 00:01] LABS: ALBUMIN 2.5 gm/dL (3.5-5.0); BILIRUBIN,TOTAL 0.4 mg/dL (0.2-1.2); CALCIUM 7.9 mg/dL (8.4-10.2); CREATININE, serum 15.77 mg/dL (0.57-1.11); TOTAL PROTEIN 6.9 gm/dL (6.2-8.1)
[2022-01-04 00:04] LABS: POTASSIUM 6.3 mmol/L (3.5-4.5)
[2022-01-04 00:10] LABS: TROPONIN-I 0.036 ng/mL (0.00-0.033)
[2022-01-04 01:34] VITALS: BP 216/115; PULSE 54
== END 2022-01-04 01:35 | disposition short-term general hospital (02) ==
LOC: COL.ER 20:36
PROVIDERS: Emergency Medicine
DX: S32.028A Other fracture of second lumbar vertebra, initial encounter for closed fracture (principal); N30.90 Cystitis, unspecified without hematuria; R41.82 Altered mental status, unspecified; L03.115 Cellulitis of right lower limb; E87.5 Hyperkalemia; E11.22 Type 2 diabetes mellitus with diabetic chronic kidney disease; I12.0 Hypertensive chronic kidney disease with stage 5 chronic kidney disease or end stage renal disease; N18.6 End stage renal disease; R18.8 Other ascites; Z99.2 Dependence on renal dialysis; Z86.16 Personal history of COVID-19; Z32.02 Encounter for pregnancy test, result negative; Z20.822 Contact with and (suspected) exposure to COVID-19; X58.XXXA Exposure to other specified factors, initial encounter
CPT/HCPCS: J2543; J3370; J7040